=== PATIENT | male | born 1975 | race Two or more races ===

== ENCOUNTER 2018-03-04 04:23 | Emergency (ER) | payer OTHER ==
[~2018-03-04] VITALS: Ht 167.6 cm; Wt 90.3 kg
[2018-03-04 04:51] VITALS: Ht 167.6 cm; Wt 90.3 kg
[2018-03-04 06:34] VITALS: BP 138/99
== END 2018-03-04 07:48 | disposition home or self-care (01) ==
LOC: ED 04:23
DX: S61.211A Laceration without foreign body of left index finger without damage to nail, initial encounter (principal); W26.0XXA Contact with knife, initial encounter; Y93.89 Activity, other specified; Y92.89 Other specified places as the place of occurrence of the external cause; Y99.0 Civilian activity done for income or pay
CPT/HCPCS: 90715; J2001